=== PATIENT | male | born 2005 | race Two or more races ===

== ENCOUNTER 2025-07-06 20:53 | Emergency (ER) | payer BC, SELFPAY ==
[2025-07-06 20:55] VITALS: BMI 19.5
[2025-07-06 21:09] VITALS: BP 134/74; PULSE 65; RESP 16; TEMP 36.9; O2SAT 97
--- NOTE | 2025-07-06 21:22 | XR_ITS ---
Examination: Hand, right 3 views Technique: Hand AP, oblique, lateral 3 views Date and time of exam: July 06, 2025 2147 hrs. Indications: Injury to the hand today, hand pain Findings: Nonstandard views No acute fracture No dislocation Impression: Limited study No acute fracture
--- NOTE | 2025-07-06 21:23 | EDNOTE_ITS ---
Upper Extremity Injury RME/HPI General Chief Complaint: Hand/Wrist Problems Stated Complaint: RIGHT HAND INJURY Time Seen by Provider: 07/06/25 21:00 Arrival date/time: 07/06/25 20:53 RME / HPI RME / HPI narrative: 19-year-old male patient came in for evaluation regarding multiple right hand abrasions involving multiple abrasions also noted to the fingers, after patient punched a window last night. Patient is able to bend and extend the fingers without any limitation. Patient complaining of hand pain no deformity noted. Vaccination is unknown for tetanus. Related Data Previous Rx's ?Medication ?Instructions ?Recorded bacitracin 500 unit/gram topical 1 applic topical BID 7 days #28 07/06/25 ointment grams ibuprofen 600 mg tablet 600 mg PO Q8H PRN pain #30 t abs 07/06/25 Allergies Allergy/AdvReac Type Severity Reaction Status Date / Time No Known Allergies Allergy Verified 07/06/25 20:54 Review of Systems Review of Systems Narrative Review of Systems: Review of system reviewed and within normal limits except mentioned in HPI ED Exam Narrative Physical exam: VITAL SIGNS: Reviewed. GENERAL APPEARANCE: Alert and interactive, follows commands, no acute distress, HEAD AND FACE: Non-traumatic. RECTAL: Deferred. GENITAL: Deferred. NEUROLOGICAL: Gross motor function intact sensory function intact, Appropriate for age. MUSCULOSKELETAL: low back nontender, full range of motion. EXTREMITIES: Multiple nongaping abrasions, hand and fingers, full range of motion of the fingers and thumb full range of motion of the wrist., SKIN: Color pink, dry, no rash, no lacerations, no abrasions, no contusions. LYMPHATICS: Deferred. Course Quality Measures none Orders Category Date Time Status XR hand RT 2V Stat Exams 07/06/25 21:22 Taken Ibuprofen Tab [Motrin Tab] Med 07/06/25 21:22 Discontinued 800 mg PO X1 ONE TET,DIP/PERT AC (Adult)-Tdap [Boostrix Adult (Tdap) Med 07/06/25 21:22 Discontinued Vacc] 0.5 ml IMI .ONCE ONE Vital Signs Vital signs: Vital Signs Temperature 98.4 F 07/06/25 21:09 Pulse Rate 65 07/06/25 21:09 Respiratory Rate 16 07/06/25 21:09 Blood Pressure 134/74 H 07/06/25 21:09 Pulse Oximetry (%) 97 07/06/25 21:09 Oxygen Delivery Method Room Air 07/06/25 21:09 Extremity Injury [facility] Narrative [facility] Narrative:: 19-year-old male patient came in for evaluation regarding multiple right hand abrasions involving multiple abrasions also noted to the fingers, after patient punched a window last night. Patient is able to bend and extend the fingers without any limitation. Patient complaining of hand pain no deformity noted. Vaccination is unknown for tetanus. X-ray of the hand as interpreted by me did not show any fracture or dislocation. Results discussed with the patient. Hand was cleansed with NS, and bacitracin dressing applied. Stable for discharge home. Patient data External records reviewed:: None Clinical information provided by:: patient Social determinants that could affect healthcare access:: none Patient has the following chronic illnesses:: Plan How is presenting disease/condition affected by chronic disease/condition?: no chronic disease Evaluation data The following diagnostics were reviewed and interpreted by me:: radiology exam(s) Lab and/or radiology exams considered but not ordered:: None Interpretation Summary: See results [facility] Medications / Prescriptions Medications or Prescriptions considered but not ordered:: None Medication administrations:: Medication Administration History Discontinued Medications Diphtheria/Tetanus/Acell Pertussis (Diphth,Pertuss(Acell),Tet Vac 0.5 Ml Syr- Adult) 0.5 ml IMi .ONCE ONE Stop: 07/06/25 21:23 Last Admin: 07/06/25 21:51 Dose: 0.5 ml Documented By: OA Ibuprofen (Ibuprofen Tab 400 Mg Tablet) 800 mg PO X1 ONE Stop: 07/06/25 21:23 Last Admin: 07/06/25 21:51 Dose: 800 mg Documented By: OA Motrin, Boostrix Consultations Consultation(s) initiated? (list below): No Diagnosis Upper Extremity Injury Differential Diagnosis: sprain and strain of wrist, fracture of wrist and finger sprain Most likely diagnosis given after review of the tests above:: Multiple abrasions, hand and fingers Admission Indicated Admission indicated?: not indicated Admission Request Was there a request for admission?: No Disposition Plan Disposition Plan: Discharge Discharge Attestation Discharge Attestation: The patient and all family members were given an opportunity to ask questions and understood the discharge instructions. Discharge instructions specifically effects, indications for sooner follow up or return to the emergency department, and the expected course of current diagnosis. Patient condition: Stable Discharge Plan Plan Patient Disposition: HOME (Self Care) Discharge Disposition comment: Stable Prescriptions/Referrals Prescriptions/Med Rec: New ibuprofen 600 mg tablet 600 mg PO Q8H PRN (Reason: pain) Qty: 30 0RF bacitracin 500 unit/gram ointment 1 applic topical BID 7 Days Qty: 28 0RF Referrals: No Primary/Family,Physician [Primary Care Provider] - In 1 week Problem List Clinical Impression: Abrasion of multiple sites of hand and finger Patient/Caregiver Discharge Instructions Discharge Activity: activity as tolerated Education Materials: ED Abrasions Additional Instructions: Thank you for the opportunity for serving you today. You are stable for discharged . You are advised to: Follow-up with your PCP in 1 to 2 days Return to ED for worsening of symptoms Increase oral fluids Take medication as prescribed Daily dressing with bacitracin as needed Print Language: Polish Stand Alone Forms: Mallorie Award Info., Work/School Release, Patient Portal Info Letter SOSA/EMILY Supervising Physician GENOVEVA Supervising Physician: MD Linda
[2025-07-06] MEDS: DIPHTH,PERTUSS(ACELL),TET VAC 0.5 ML SYR- ADULT IMi (21:51)
[2025-07-06] MEDS: IBUPROFEN TAB 400 MG TABLET 800 MG PO (21:51)
== END 2025-07-06 22:50 | disposition home or self-care (01) ==
PROVIDERS: Emergency Provider Emergency Medicine
DX: S60.511A Abrasion of right hand, initial encounter (principal); S60.419A Abrasion of unspecified finger, initial encounter; Z23 Encounter for immunization; W22.09XA Striking against other stationary object, initial encounter
CPT/HCPCS: 73120; 90471; 90715; 99283; A9270